=== PATIENT | female | born 1960 | race Caucasian/White ===

== ENCOUNTER 2020-05-01 18:18 | Inpatient (IN) | payer MEDICARE, OTHER ==
[~2020-05-01] VITALS: Ht 144.8 cm; Wt 69.4 kg
[2020-05-01] MEDS ORDERED: ALBUTEROL2.5 MG/3 M INH (20:57)
[2020-05-01] MEDS ORDERED: LIPITOR40 MG PO (20:58)
[2020-05-01] MEDS ORDERED: HYDROCODON-ACE1 EAC6 PO (20:59)
[2020-05-01] MEDS ORDERED: OMEPRAZOLE40 MG PO (21:00)
[2020-05-01] MEDS ORDERED: LISINOPRIL20 MG PO (21:00)
[2020-05-01] MEDS ORDERED: ADIPEX-P37.5 MG PO (21:00)
[2020-05-01] MEDS ORDERED: ZOCOR 40 MG TAB40 MG PO (21:01)
--- NOTE | 2020-05-02 00:18 | NUR ---
UP TO BATHROOM WITH R.N. ASSIST WITHOUT COMPLICATION . ASSIST BACK INTO BED. 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 RIGHT GROIN ARTERIAL SITE SOFT, DRSG CDI.
[2020-05-02 06:25] LABS: RED BLOOD COUNT 5.05 M/UL (4.00-5.10); WHITE BLOOD COUNT 9.9 K/UL (4.5-11.0)
[2020-05-02 06:57] LABS: BUN/CREATININE RATIO 19 (0-10)
--- NOTE | 2020-05-02 19:54 | NUR ---
PT UP TO BATHROOM TO BATHE . NO COMPLIANTS OF CP . FAMILY WITH PATIENT .
--- NOTE | 2020-05-03 04:23 | NUR ---
PATIENT UP TO BR. RESPIRATORY SOUNDS WITH AUDIBLE WHEEZING NOTED. AUSCULTATION REVEALED EXPIRATORY WHEEZES AND FINE CRACKLES IN LUNG BASES. PATIENT DENIES DISTRESS AT THIS TIME. DR Ceasar SANDERS NOTIFIED. ORDER RECEIVED.
[2020-05-04 06:26] LABS: HEMOGLOBIN 12.8 gm/dl (12.3-15.3); WHITE BLOOD COUNT 10.6 K/UL (4.5-11.0)
[2020-05-04 06:28] LABS: RED BLOOD COUNT 4.5 M/UL (4.00-5.10)
[2020-05-04 07:12] LABS: BUN/CREATININE RATIO 23 (0-10)
[2020-05-06] MEDS ORDERED: CLOPIDOGREL75 MG PO (09:58)
[2020-05-06] MEDS ORDERED: ATORVASTATIN CA40 MG PO (09:58)
[2020-05-06] MEDS ORDERED: NITROGLYCERIN0.4 MG SL (09:58)
[2020-05-06] MEDS ORDERED: CARVEDILOL3.125 MG PO (09:58)
[2020-05-06] MEDS ORDERED: ASPIRIN EC81 MG PO (09:58)
[2020-05-06] MEDS ORDERED: NICODERM CQ1 EAC1 TD (10:24)
[2020-06-27] MEDS ORDERED: ECOTRIN81 MG PO (10:02)
[2020-06-27] MEDS ORDERED: PROAIR DIGIHAL90 MCG INH (10:02)
[2020-06-27] MEDS ORDERED: ATORVASTATIN CA40 MG PO (10:03)
[2020-06-27] MEDS ORDERED: CARVEDILOL6.25 MG PO (10:03)
[2020-06-27] MEDS ORDERED: PLAVIX 75 MG TA75 MG PO (10:04)
[2020-06-27] MEDS ORDERED: HYDROCODON-ACE1 EAC6 PO (10:04)
[2020-06-27] MEDS ORDERED: LISINOPRIL20 MG PO (10:05)
[2020-06-27] MEDS ORDERED: OMEPRAZOLE40 MG PO (10:06)
[2020-06-27] MEDS ORDERED: NITROGLYCERIN0.4 MG SL (10:06)
== END 2020-05-06 10:27 | disposition home or self-care (01) | DRG 247 ==
LOC: PROG CARE 18:18 → CCU 19:03 → CDU 19:03 → CCU 20:17 → PROG CARE 05-04 16:50
PROVIDERS: Internal Medicine Interventional Cardiology; ADMIT Internal Medicine
PROC: 027034Z Dilation of Coronary Artery, One Artery with Drug-eluting Intraluminal Device, Percutaneous Approach (ICD-10-PCS; principal; 2020-05-01)
PROC: 027034Z Dilation of Coronary Artery, One Artery with Drug-eluting Intraluminal Device, Percutaneous Approach (ICD-10-PCS; 2020-05-01)
PROC: 4A023N7 Measurement of Cardiac Sampling and Pressure, Left Heart, Percutaneous Approach (ICD-10-PCS; 2020-05-01)
PROC: B2111ZZ Fluoroscopy of Multiple Coronary Arteries using Low Osmolar Contrast (ICD-10-PCS; 2020-05-01)
PROC: B2151ZZ Fluoroscopy of Left Heart using Low Osmolar Contrast (ICD-10-PCS; 2020-05-01)
PROC: 4A023N7 Measurement of Cardiac Sampling and Pressure, Left Heart, Percutaneous Approach (ICD-10-PCS; 2020-05-03)
PROC: B2111ZZ Fluoroscopy of Multiple Coronary Arteries using Low Osmolar Contrast (ICD-10-PCS; 2020-05-03)
PROC: B41F1ZZ Fluoroscopy of Right Lower Extremity Arteries using Low Osmolar Contrast (ICD-10-PCS; 2020-05-03)
DX: I21.19 ST elevation (STEMI) myocardial infarction involving other coronary artery of inferior wall (principal); I25.10 Atherosclerotic heart disease of native coronary artery without angina pectoris; I70.211 Atherosclerosis of native arteries of extremities with intermittent claudication, right leg; J44.9 Chronic obstructive pulmonary disease, unspecified; I10 Essential (primary) hypertension; E78.5 Hyperlipidemia, unspecified; K22.2 Esophageal obstruction; E66.9 Obesity, unspecified; F17.200 Nicotine dependence, unspecified, uncomplicated; Z68.33 Body mass index [BMI] 33.0-33.9, adult; Z82.49 Family history of ischemic heart disease and other diseases of the circulatory system; L23.1 Allergic contact dermatitis due to adhesives; Z71.6 Tobacco abuse counseling; F41.9 Anxiety disorder, unspecified; K21.00 Gastro-esophageal reflux disease with esophagitis, without bleeding
CPT/HCPCS: 36415; 75710; 80048; 80053; 82550; 82553; 84484; 85027; 85347; 93005; 94640; 94664; 94760; 99152; 99153; C1725; C1760; C1769; C1874; C1887; C9600; J0360; J0461; J1170; J1644; J2250; J2270; J3010; J7030; J7040; Q9963; Q9965; Q9967

== ENCOUNTER → 2020-06-25 | Outpatient (CLI) | payer MEDICARE, OTHER ==
[~2020-06-25] MED LIST: ADIPEX-P37.5 MG PO; ALBUTEROL2.5 MG/3 M INH; ASPIRIN EC81 MG PO; ATORVASTATIN CA40 MG PO; CARVEDILOL3.125 MG PO; CARVEDILOL6.25 MG PO; CLOPIDOGREL75 MG PO; ECOTRIN81 MG PO; HYDROCODON-ACE1 EAC6 PO; LIPITOR40 MG PO; LISINOPRIL20 MG PO; NICODERM CQ1 EAC1 TD; NITROGLYCERIN0.4 MG SL; OMEPRAZOLE40 MG PO; PLAVIX 75 MG TA75 MG PO; PROAIR DIGIHAL90 MCG INH; ZOCOR 40 MG TAB40 MG PO
[2020-06-25 14:41] LABS: RED BLOOD COUNT 3.69 M/UL (4.00-5.10); WHITE BLOOD COUNT 9.3 K/UL (4.5-11.0)
[2020-06-25 15:03] LABS: BUN/CREATININE RATIO 15 (0-10)
== END ==
LOC: LAB 13:49
PROVIDERS: Physician Assistant
DX: I25.10 Atherosclerotic heart disease of native coronary artery without angina pectoris (principal); I73.9 Peripheral vascular disease, unspecified; I10 Essential (primary) hypertension; E78.00 Pure hypercholesterolemia, unspecified; I77.1 Stricture of artery; Z13.9 Encounter for screening, unspecified
CPT/HCPCS: 36415; 80048; 85025

== ENCOUNTER → 2020-06-27 | Outpatient (CLI) | payer MEDICARE, OTHER | LOC: CATH 08:00 | PROC: 047C34Z Dilation of Right Common Iliac Artery with Drug-eluting Intraluminal Device, Percutaneous Approach (ICD-10-PCS; principal; 2020-06-27) | PROC: B41DZZZ Fluoroscopy of Aorta and Bilateral Lower Extremity Arteries (ICD-10-PCS; 2020-06-27) | DX: I70.211 Atherosclerosis of native arteries of extremities with intermittent claudication, right leg (principal); I25.2 Old myocardial infarction; I10 Essential (primary) hypertension; E78.5 Hyperlipidemia, unspecified; J98.4 Other disorders of lung; Z87.891 Personal history of nicotine dependence; Z82.49 Family history of ischemic heart disease and other diseases of the circulatory system; Z79.82 Long term (current) use of aspirin; Z79.899 Other long term (current) drug therapy | CPT/HCPCS: 75630; 85347; 99152; 99153; C1725; C1769; C1876; J1644; J2250; J3010; J7030; Q9965 ==